=== PATIENT | male | born 1955 | race Caucasian/White ===

== ENCOUNTER → 2016-08-13 13:20 | Outpatient (CLI) | payer MEDICAID ==
[2014-02-14 08:17] VITALS: BMI 32.9
[~2016-08-13 13:20] MED LIST: BAYER CHEWABLE81 MG PO; BUSPAR10 MG PO; BYSTOLIC5 MG PO; EFFIENT10 MG PO; FISH OIL 1,0001 CA1 PO; NORVASC5 MG PO; PLAVIX75 MG PO; XANAX1 MG PO; ZESTRIL20 MG PO; ZYLOPRIM300 MG PO
== END | disposition home or self-care (01) ==
LOC: D.CT 13:20
DX: I70.219 Atherosclerosis of native arteries of extremities with intermittent claudication, unspecified extremity (principal)

== ENCOUNTER 2016-08-29 08:24 | Outpatient (CLI) | payer MEDICAID ==
[~2016-08-29] VITALS: Ht 182.9 cm; Wt 114.5 kg
--- NOTE | ~2016-08-29 | HEMODYNAMI ---
PATIENT:JOCELYNN WINSTON JR MEDICAL RECORD: [id number] : 59 LOCATION:[facility] ADMISSION DATE: 08/29/16 Generatedon:08/29/201611:28 Patient name: JOCELYNN WINSTON Patient #: [id number] SSN: : Date of study: 08/29/2016 Page: Of Hemodynamic Procedure Report Patient Data Patient Demographics Procedure consent was obtained First Name: JOCELYNN Gender: Male Last Name: CATRACHITO Suffix: Patient #: [id number] : 1955 Age: 60 year(s) Accession #: Race: Unknown [id number] Additional ID: [id number] Contact details Address: [address] [place] [address] State: [place] City: [place] Zip code: [address] Past Medical History Allergies Allergen Reaction Date Comments Reported Other allergy 08/29/2016 Wellbutrin, Codeine, Morphine,Lipitor Admission Admission Data Admission Date: 08/29/2016 Admission Time: 8:24 Admit Source: Other Height (in.): 72 BSA: 2.35 (m2) Height (cm.): 182.88 BMI: 34.18 (kg/m2) Weight (lbs.): 252 Weight (kg.): 114.31 Lab Results Lab Result Date: 08/29/2016 Lab Result Time: 9:40 Biochemistry Name Units Result Min Max BUN mg/dl 9 --(*---)-- 7 18 Creatinine mg/dl 0.9 --(-*--)-- 0.6 1.3 CBC Name Units Result Min Max Hematocrit % 43.1 --(*---)-- 42 54 Hemoglobin g/dl 14.7 --(-*--)-- 13.5 17.5 Procedure Procedure Types Cath Procedure Diagnostic Procedure LHC LHC w/Coronaries PCI Procedure Coronary Stent Initial Miscellaneous Procedures Moderate Sedation up to 15 minutes Procedure Description Procedure Date Procedure Date: 08/29/2016 Procedure Start Time: 11:14 Procedure End Time: 11:26 Procedure Staff Name Function Sammy Meraz MD Performing Physician Ysabel Mcpherson RT Scrub [place] Adamson RN Nurse Luis Enrique Emery RT Monitor Procedure Data Cath Procedure Fluoroscopy Diagnostic fluoroscopy Total fluoroscopy Time: 2.5 time: 2.5 min min Diagnostic fluoroscopy Total fluoroscopy dose: dose: 290.86 mGy 290.86 mGy Contrast Material Contrast Material Type Amount (ml) Isovue 300 74 Entry Location Entry Primary Successful Side Size Upsize Upsize Entry Closure Malone ccessful Closure Location (Fr) 1 (Fr) 2 (Fr) Remarks Device Remarks Radial Right 6 Fr Mechanical artery Short Compression Estimated blood loss: 10 ml Diagnostic catheters Device Type Used For End Catheter Placement Terumo 5Fr Nick 110cm Procedure catheter Procedure Complications No complications Procedure Medications Medication Administration Route Dosage Oxygen NC 2 l/min Heparin Flush Bag added to field 2 bags (1000units/500ml NS) Lidocaine 2% added to field 20 Radial Cocktail added to field 1 syringe (Verapomil 2mg/Nitro 400mcg/Heparin 1500units) Fentanyl I.V. 50 mcg Versed I.V. 1 mg Fentanyl I.V. 50 mcg Versed I.V. 1 mg Fentanyl I.V. 25 mcg unlisted medication I.V. 0.5 mg Fentanyl I.V. 50 mcg Versed I.V. 1 mg Radial Cocktail I.A. 1 syringe (Verapomil 2mg/Nitro 400mcg/Heparin 1500units) Heparin Bolus I.V. 4000 units Fentanyl I.V. 25 mcg Versed I.V. 0.5 mg Hemodynamics Rest BSA: 2.35 (m2) HGB: 14.7 (g/dl) O2 Consumption: Estimated: 285.03 (ml/min) O2 Co nsumption indexed: Estimated:121.29 (ml/min/m) Heart Rate: 79 (bpm) Snapshots Pre Cath Intra NCS Post Cath Vital Signs Time Heart Resp SPO2 NIBP (mmHg) Rhythm Pain Sedation Rate (ipm) (%) Status Level (bpm) 11:03:36 79 18 97 144/91(116) NSR 0 (11) 10(A) , No pain 11:08:01 77 17 95 135/85(103) NSR 0 (11) 10(A) , No pain 11:12:25 76 16 93 130/81(100) NSR 0 (11) 9(A) , No pain 11:16:47 79 19 93 116/66(89) NSR 0 (11) 9(A) , No pain 11:21:05 76 19 94 117/75(90) NSR 0 (11) 9(A) , No pain 11:25:25 77 13 93 124/70(99) NSR 0 (11) 10(A) , No pain Medications Time Medication Route Dose Verified Delivered Reason Note s Effectiveness by by 10:57:06 Oxygen NC 2 l/min Mile Mile used for Adamson Adamson triage rn RN 10:57:13 Heparin Flush added 2 bags Mile Mile used for Bag to Adamson Adamson procedure (1000units/500ml field RN RN NS) 10:57:19 Lidocaine 2% added 20ml Mile Mile used for to vial Adamson Adamson procedure field RN RN 10:57:26 Radial Cocktail added 1 Mile Mile used for (Verapomil to syringe Adamson Adamson procedure 2mg/Nitro field RN RN 400mcg/Heparin 1500units) 11:09:20 Fentanyl I.V. 50 mcg Mile Mile for sedation Adamson Adamson RN RN 11:09:27 Versed I.V. 1 mg Mile Mile for sedation Adamson Adamson RN RN 11:10:54 Fentanyl I.V. 50 mcg [place] for sedation Adamson Adamson RN RN 11:10:57 Versed I.V. 1 mg [place] for sedation Adamson Adamson RN RN 11:12:11 Fentanyl I.V. 25 mcg [place] for sedation Adamson Adamson RN RN 11:12:16 v I.V. 0.5 mg Mile Mile for sedation Adamson Adamson RN RN 11:14:40 Fentanyl I.V. 50 mcg [place] for sedation Adamson Adamson RN RN 11:14:43 Versed I.V. 1 mg Mile Mile for sedation Adamson Adamson RN RN 11:16:09 Radial Cocktail I.A. 1 Mile Sammy for (Verapomil syringe Adamson Tauth MD vasodilation 2mg/Nitro RN 400mcg/Heparin 1500units) 11:20:28 Heparin Bolus I.V. 4000 Mile Mile for units Snow Adamson anticoagulation RN RN 11:21:07 Fentanyl I.V. 25 mcg Mile Treadwell for sedation Snow Adamson RN RN 11:21:14 Versed I.V. 0.5 mg Mile Treadwell for sedation Snow Adamson RN recreation officer Log Time Note 10:43:36 Mile Adamson RN sent for patient. Start room use. 10:43:37 Time tracking: Regular hours 10:43:41 Plan of Care:Hemodynamics will remain stable., Cardiac rhythm will remain stable., Comfort level will be maintained., Respiratory function will remain adequate., Patient/ family verbilizes understanding of procedure., Procedure tolerated without complication., Recovers from procedure without complications.. 10:49:27 Patient received from Pre/Post Procedure Room to CCL 3 Alert and oriented. Tansferred to table in Supine position. 10:49:28 Warm blankets applied, and arcadio hugger turned on for patient comfort. 10:49:29 Correct patient and procedure confirmed by team. 10:49:30 Signed procedure consent form obtained from patient. 10:49:31 ECG and BP/O2 sat monitors applied to patient. 10:49:40 H&P Date Dictated: 08/26/2016 Within 30 days and on chart., H&P Addendum completed by physician on day of procedure. (MUST COMPLETE FOR ALL OUTPATIENTS). 10:57:06 Oxygen 2 l/min NC was administered by Mile Adamson RN; used for procedure; 10:57:13 Heparin Flush Bag (1000units/500ml NS) 2 bags added to field was administered by Mile Adamson RN; used for procedure; 10:57:19 Lidocaine 2% 20ml vial added to field was administered by Mile Adamson RN; used for procedure; 10:57:26 Radial Cocktail (Verapomil 2mg/Nitro 400mcg/Heparin 1500units) 1 syringe added to field was administered by Mile Adamson RN; used for procedure; 11:02:16 Vital chart was started 11:03:02 Baseline sample Acquired. 11:04:38 Pre-procedure instructions explained to patient. 11:04:41 Rhythm: sinus rhythm 11:04:43 Full Disclosure recording started 11:04:46 Pre-op teaching completed and patient verbalized understanding. 11:04:47 Family in waiting room. 11:04:48 Patient NPO since Midnight. 11:05:21 Patient allergic to Other allergyWellbutrin, Codeine, Morphine,Lipitor 11:05:23 Is the patient allergic to Iodine/contrast media? No. 11:05:29 Is patient on blood thinner?Yes 11:05:32 ACC The patient was administered the following blood thiners within the last 24 hours: ACCPlavix 11:05:37 Patient diabetic? No. 11:05:40 Previous problem with sedation/anesthesia? No ? 11:05:41 Snore? Yes 11:05:42 Sleep apnea? Yes 11:05:42 Deviated septum? No 11:05:43 Opens mouth fully? Yes 11:05:44 Sticks out tongue? Yes 11:05:45 Airway obstruction? No ? 11:05:46 Dentures? No ? 11:05:48 Modified Earl's test Ulnar < 7 seconds 11:05:55 Patient pain scale 6/10 Chest Pain. 11:06:03 IV patent on arrival in left hand with 0.9% NaCl at [facility]. 11:07:37 Lab Result : BUN 9 mg/dl 11:07:37 Lab Result : Creatinine 0.9 mg/dl 11:07:37 Lab Result : Hemoglobin 14.7 g/dl 11:07:37 Lab Result : Hematocrit 43.1 % 11:07:40 Lab results completed and on chart. 11:07:42 Right Radial & Right Groin area was prepped with chlora-prep and draped in sterile fashion 11:07:44 Alarms reviewed by R. N. 11:07:44 Sharps counted by scrub and verified by R.N. 11:07:48 Use device set Radial Dx 11:07:49 MBrace Wrist Support opened to sterile field. 11:07:50 Acist Manifold opened to sterile field. 11:07:51 Acist Hand Control opened to sterile field. 11:07:52 Acist Syringe opened to sterile field. 11:07:53 Tegaderm 4 x 4 opened to sterile field. 11:07:54 Medline Cath Pack opened to sterile field. 11:07:54 Bag Decanter opened to sterile field. 11:07:56 Terumo 6Fr Slender Glidesheath opened to sterile field. 11:07:56 St Cory 260cm J .035 wire opened to sterile field. 11:08:09 Physician arrived 11:08:10 --------ALL STOP TIME OUT------ 11:08:10 Final Timeout: patient, procedure, and site verified with staff and physician. All members of the team are in agreement. 11:08:11 Right Radial & Right Groin site verified by team. 11:08:14 Physical assessment completed. ASA score P 2 - A patient with mild systemic disease as per Sammy Meraz MD. ::16 Sedation plan: IV Moderate Sedation Versed, Fentanyl 11:08:42 Patient Weight : 114.31 kg 11:08:47 Patient Height : 182.88 cm 11:08:48 Admit Source: Other 11::20 Fentanyl 50 mcg I.V. was administered by Mile Adamson RN; for sedation; 11::22 Zero performed for pressure channel P1 11:09:27 Versed 1 mg I.V. was administered by Mileclay Adamson RN; for sedation; 11:10:54 Fentanyl 50 mcg I.V. was administered by Mileclay Adamson RN; for sedation; 11:10:57 Versed 1 mg I.V. was administered by Mileclay Adamson RN; for sedation; 11:12:11 Fentanyl 25 mcg I.V. was administered by Mileclay Adamson RN; for sedation; 11:12:16 v 0.5 mg I.V. was administered by Mileclay Adamson RN; for sedation; 11:14:40 Fentanyl 50 mcg I.V. was administered by Mileclay Adamson RN; for sedation; 11:14:43 Versed 1 mg I.V. was administered by Mileclay Adamson RN; for sedation; 11:14:45 Procedure started. 11:14:50 Local anesthetic to right radial artery with Lidocaine 2% by Sammy Meraz MD.INITIAL ACCESS ONLY 11:15:02 A 6 Fr Short sheath was inserted into the Right Radial artery 11:15:55 A Zindigoumo 5Fr Nick 110cm catheter was advanced over the wire and used for Procedure. 11:16:09 Radial Cocktail (Verapomil 2mg/Nitro 400mcg/Heparin 1500units) 1 syringe I.A. was administered by Sammy Meraz MD; for vasodilation; 11:16:32 LV gram done using SIMS 11:16:35 Injector settings: Ml/sec: 5, Volume: 15, 11:16:55 EF : 60 % 11:17:09 LCA angiography performed. 11:18:00 Cortexa BasixCompak Inflation Kit opened to sterile field. 11:18: Glynn Whisper J 300cm 0.014 guide wire opened to sterile field. 11:18:29 RCA angiography performed. 11:19:06 Catheter removed. 11:19:15 Medtronic Launcher 6Fr AR 2.0 guide catheter opened to sterile field. 11:19:57 6 Fr AR 2 guide catheter was inserted over the wire 11:20:02 WHISPER wire advanced. 11:20:28 Heparin Bolus 4000 units I.V. was administered by Mile Adamson RN; for anticoagulation; 11::07 Fentanyl 25 mcg I.V. was administered by Mile Adamson RN; for sedation; 11::14 Versed 0.5 mg I.V. was administered by Mile Adamson RN; for sedation; 11::14 Wire advanced across lesion. 11::43 Inflation Number: 1 A Medtronic Integrity 3.0 X 15 stent was prepped and advanced across the Mid RCA. The stent was deployed at 17 GIBRAN for 0:10 (min:sec). 11:22:00 Stent catheter was removed intact over wire. 11:: Wire removed. 11:22: Guide catheter removed. 11:22:15 Terumo TR Band Large opened to sterile field. 11:22:26 Sheath removed intact; hemostasis achieved with Mechanical Compression to the Right Radial artery. 11:22:28 Procedure ended.(Physican Out) 11:23:19 Fluoroscopy time 02.50 minutes. 11:24:09 Fluoroscopy dose: 290.86 mGy 11:24:09 Flurop Dose total: 290.86 11:24:11 Contrast amount:Isovue 300 74ml. 11:24:12 Sharps counted by scrub and verified by R.N. 11:24:15 TR band inflated with 12cc of air. 11:24:16 Insertion/operative site no bleeding no hematoma. 11:24:22 Post right radial artery:stable, soft, clean and dry 11:24:23 Post Procedure Pulses reassessed and unchanged 11::29 Post-procedure physical assessment completed. ASA score P 2 - A patient with mild systemic disease as per Sammy Meraz MD. 11:24:31 Post procedure rhythm: unchanged. 11:24:34 Estimated blood loss: 10 ml 11:24:35 Post procedure instruction explained to patient.Patient verbalizes understanding. 11:24:36 Patient needs reinforcement of post procedure teaching. 11:24:56 Procedure type changed to Cath procedure, Diagnostic procedure, LHC, LHC w/Coronaries, PCI procedure, Coronary Stent Initial, Miscellaneous Procedures, Moderate Sedation up to 15 minutes 11:26:03 Procedure and supply charges have been captured, reviewed, submitted and are correct. 11:26:06 Procedure Complication : No complications 11:26:07 Vital chart was stopped 11:26:08 See physician's report for complete and final results. 11:26:09 Report given to Pre/Post Procedure Room. 11:26:12 Patient transfered to Pre/Post Procedure Room with Stretcher. 11:26:14 Procedure ended. 11:26:14 Full Disclosure recording stopped 11::43 End room use (Document Last) Intervention Summary Intervention Notes Time ActionType Lesion and Equipment Action# Pressure Duration Attributes Used 11:21:43 Place stent Mid RCA Medtronic 1 17 00:10 Integrity 3.0 X 15 stent Device Usage Item Name Manufacture Quantity Catalog Hospital Part Current Minimal Lot# / Number Charge Number Stock Stock Serial# Code [facility] 1 140-0250-00 106124 03298 320782 5 Wrist Vascular Support Dynamics Acist Acist 1 86105 660111 957245 429268 5 Manifold Medical Systems Inc Acist Hand Acist 1 38519 288275 690661 035226 5 Control Medical Systems Inc Acist Acist 1 87512 306712 590868 123831 20 Syringe Medical Systems Inc Tegaderm 4 3M 1 1626W 619867 637949 506689 5 x 4 Medline Cardinal 1 [id number] 524100 47097 940273 5 Cath Pack Health Bag Microtek 1 2002S 364513 78226 418001 5 Welcome Real-time. Terumo 6Fr Terumo 1 [id number] 501777 776419 584924 [address] [facility] Cory 1 058485 111955 230042 234184 30 260cm J .035 wire Terumo 5Fr Terumo 1 01-7058 795683 417203 174684 5 Nick 110cm catheter Merit Merit 1 WW6015 290635 969967 332344 15 BasixCompak Medical Inflation Kit Glynn Glynn 1 [id number] 628375 106060 265636 5 Whisper J Vascular 300cm 0.014 guide wire Medtronic Medtronic 1 [id number] 409344 04650 244818 1 Launcher 6Fr AR 2.0 guide catheter Medtronic Medtronic 1 [id number] 282055 178065 3 [id number] Integrity 3.0 X 15 stent Terumo TR Terumo 1 [id number] 208794 126441 045676 40 Band Large Signature Audit [place] Stage Time Signature Unsigned Intra-Procedure 08/29/2016 Luis Enrique Emery 11:28:05 AM RT(R) Signatures Monitor : Luis Enrique Emery RT Signature : Date : Time : [place] [id number] [facility] [place] [address]
[2016-08-29 09:30] VITALS: BP 137/74; Ht 182.9 cm; Wt 114.5 kg
[2016-08-29] MEDS ORDERED: ULORIC40 MG PO (09:39)
[2016-08-29] MEDS ORDERED: MYSOLINE 50 MG50 MG PO (09:40)
[2016-08-29] MEDS ORDERED: PROTONIX40 MG PO (09:40)
[2016-08-29] MEDS ORDERED: LOPID600 MG PO (09:41)
[2016-08-29] MEDS ORDERED: HYDRALAZINE HCL50 MG PO (09:42)
[2016-08-29] MEDS ORDERED: CATAPRES0.2 MG PO (09:42)
[2016-08-29] MEDS ORDERED: METOPROLOL TART25 MG PO (09:43)
[2016-08-29 09:46] LABS: BASOPHILS 0.3 % (0-2); EOSINOPHILS 1.9 % (0-7); HEMATOCRIT 43.1 % (42.0-54.0); HEMOGLOBIN 14.7 g/dL (13.5-17.5); IMMATURE GRANULOCYTES 0.3 % (0-5); LYMPHOCYTES 16.9 % (15-50); MCH 33.6 pg (26.0-34.0); MCHC 34.1 g/dL (31.0-37.0); MCV 98.6 fL (80.0-100.0); MEAN PLATELET VOLUME 10.6 fL (7.4-10.4); MONOCYTES 10.5 % (2-11); NEUTROPHILS 70.1 % (40-80); PLATELET COUNT 163 10x3/uL (130-400); RBC 4.37 10x6/uL (4.20-6.10); RDW 13.5 % (11.5-14.5); WBC 7.8 10x3/uL (4.8-10.8)
[2016-08-29 09:55] LABS: CALC OSMOLALITY 263 mosm/kg (275-300); CALCIUM 8.5 mg/dL (8.5-10.1); CARBON DIOXIDE 18.7 mmol/L (21.0-32.0); CHLORIDE - SERUM 102 mmol/L (98-107); CREATININE - SERUM 0.9 mg/dL (0.6-1.3); GLUCOSE 138 mg/dL (74-106); SODIUM 131 mmol/L (136-145); UREA NITROGEN 9 mg/dL (7-18); eGFR NON AFRICAN AMERICAN > 90 mL/min (90-120)
[2016-08-29] MEDS ORDERED: PLAVIX75 MG PO (11:31)
--- NOTE | 2016-08-29 11:46 | NUR ---
TR BAND INTACT, NO BLEEDING AT SITE, SANDWICH AND DIET COLA SERVED.
--- NOTE | 2016-08-29 12:14 | NUR ---
TR BAND INTACT, NO CHANGES
--- NOTE | 2016-09-01 10:11 | OP ---
PATIENT NAME: JOCELYNN WINSTON JR MEDICAL RECORD: [id number] :59 LOCATION:D.CAT ADMISSION DATE: SURGEON: FRANCISCA VELARDE MD DATE OF OPERATION: 08/29/2016 PROCEDURES: 1. PTCA stent RCA. 2. Left heart catheterization. 3. Selective coronary angiography. 4. Left ventriculogram. INDICATION: Angina and coronary artery disease. PROCEDURE IN DETAIL: After informed consent was obtained and after a detailed explanation of the risks, benefits as well as alternative therapies, the patient elected to proceed with angiogram and angioplasty. The right radial area was prepped and draped in normal sterile fashion. The right radial artery was cannulated via modified Seldinger technique with placement of 6-Sol[place] Islander sheath. All catheters exchanged through this sheath. FINDINGS: The left ventriculogram was performed in standard 30-degree SIMS view, reveals good cardiac wall motion throughout all segments. Overall ejection fraction estimated at 60%. SELECTIVE CORONARY ANGIOGRAPHY: 1. Left main is with no significant angiographic disease. 2. Left anterior descending has moderate irregularities, but no flow-limiting stenosis. 3. The left circumflex shows moderate irregularities, but no flow-limiting stenosis. 4. The right coronary has an 85% stenosis in the mid vessel. PTCA STENT OF THE RIGHT CORONARY: The stent used is a 3.0 x 15 mm Integrity. Result was 0% residual stenosis. OVERALL IMPRESSION: Successful percutaneous transluminal coronary angioplasty stent of the right coronary artery going from 85% initial stenosis to 0% residual. TRANSINT:[id number] Voice Confirmation ID: [id number] DOCUMENT ID: [id number] FRANCISCA VELARDE MD at 1011 CC: [id number] DICTATION DATE: 08/29/16 1126 [employer] FOR[employer]ER: 08/29/162056 DEP CLI 08/29/16 [place] [id number]
== END 2016-08-29 15:30 | disposition home or self-care (01) ==
LOC: D.CATH 08:24
PROVIDERS: Internal Medicine Interventional Cardiology
DX: I25.119 Atherosclerotic heart disease of native coronary artery with unspecified angina pectoris (principal); I10 Essential (primary) hypertension; R06.09 Other forms of dyspnea; E78.5 Hyperlipidemia, unspecified; F17.200 Nicotine dependence, unspecified, uncomplicated; Z01.812 Encounter for preprocedural laboratory examination